=== PATIENT | female | born 1980 | race Caucasian/White ===

== ENCOUNTER 2022-12-28 13:07 | Observation (INO) | payer MEDICARE, MEDICAID ==
[~2022-12-28] VITALS: Ht 162.6 cm; Wt 72.4 kg
--- NOTE | 2022-12-28 13:23 | ED Chest Pain ---
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 PT STATES WAS LAYING DOWN WHEN CHEST PAIN BEGAN. PT REPORTS CARDIAC HX, 2 STENTS. PT A&OX4 Source: patient Exam Limitations: no limitations History of Present Illness Date Seen by Provider: Dec 28, 2022 Time Seen by Provider: 13:21 Initial Comments Patient is a 42-year-old female with a history of coronary artery disease who presents to the ED for chest pain. Chest pain started 2 hours ago while sitting at home. Described as sharp substernal without radiation. Shortness of breath over the past 3 days. Shortness of breath is not worse with exertion or laying down. Denies any leg swelling. 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 She has a history of cardiomyopathy. She is not on any diuretics. She denies fever, chills, nausea, vomiting, diarrhea, headache, dizziness, recent travels or surgeries, leg swelling. Patient with a history of high cholesterol and diabetes. Patient is currently on insulin for her type 2 diabetes. She does take Brilinta. Allergies and Home Medications Allergies Coded Allergies: liraglutide (Verified Allergy, Unknown, 12/28/22) prednisone (Verified Allergy, Unknown, 12/28/22) Patient Home Medication List Home Medication List Reviewed: Yes Review of Systems Review of Systems Constitutional: No chills, No diaphoresis EENTM: No Double Vision, No Eye Pain Respiratory: Denies Cough, Denies Orthopnea; Shortness of Air Cardiovascular: Chest Pain Gastrointestinal: Denies Abdominal Pain, Denies Diarrhea, Denies Nausea, Denies Vomiting Genitourinary: Denies Burning, Denies Discharge, Denies Drainage, Denies Frequency Musculoskeletal: No back pain, No joint pain Skin: No change in color All Other Systems Reviewed Negative Unless Noted: Yes Past Lrirsjl-Ikcxis-Auzuhb Hx Patient Social History Tobacco Use?: No Substance use?: No Alcohol Use?: No Pt feels they are or have been: No Past Medical History Surgery/Hospitalization HX: 2 HEART SENTS, CAD, DM2, HTN Physical Exam Vital Signs Vital Signs - First Documented 12/28/22 13:11 Pulse 108 Resp 20 B/P (MAP) 128/108 (115) Pulse Ox 100 O2 Delivery Room Air Capillary Refill : Less Than 3 Seconds Height, Weight, BMI Height: '" Weight: lbs. oz. kg; BMI Method: General Appearance: No Apparent Distress, WD/WN HEENT: PERRL/EOMI, TMs Normal, Normal ENT Inspection, Pharynx Normal Neck: Full Range of Motion, Normal Inspection, Non Tender, Supple Respiratory: Chest Non Tender, Lungs Clear, Normal Breath Sounds, No Accessory Muscle Use, No Respiratory Distress Cardiovascular: No Edema, No Gallop, No JVD, No Murmur, Tachycardia Gastrointestinal: Normal Bowel Sounds, No Organomegaly, No Pulsatile Mass, Non Tender Extremity: Normal Capillary Refill, Normal Inspection, Normal Range of Motion, Non Tender Neurologic/Psychiatric: Alert, Oriented x3, No Motor/Sensory Deficits, Normal 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, 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 Skin: Normal Color, Warm/Dry Progress/Results/Core Measures Results/Orders Lab Results Laboratory Tests Test 12/28/22 13:17 Range/Units White Blood Count 9.4 4.3-11.0 10^3/uL Red Blood Count 5.65 H 3.80-5.11 10^6/uL Hemoglobin 14.7 11.5-16.0 g/dL Hematocrit 44 35-52 % Mean Corpuscular Volume 78 L 80-99 fL Mean Corpuscular Hemoglobin 26 25-34 pg Mean Corpuscular Hemoglobin Concent 34 32-36 g/dL Red Cell Distribution Width 15.2 H 10.0-14.5 % Platelet Count 298 130-400 10^3/uL Mean Platelet Volume 10.0 9.0-12.2 fL Immature Granulocyte % (Auto) 2 % Neutrophils (%) (Auto) 54 42-75 % Lymphocytes (%) (Auto) 35 12-44 % Monocytes (%) (Auto) 7 0-12 % Eosinophils (%) (Auto) 1 0-10 % Basophils (%) (Auto) 1 0-10 % Neutrophils # (Auto) 5.1 1.8-7.8 10^3/uL Lymphocytes # (Auto) 3.3 1.0-4.0 10^3/uL Monocytes # (Auto) 0.7 0.0-1.0 10^3/uL Eosinophils # (Auto) 0.1 0.0-0.3 10^3/uL Basophils # (Auto) 0.1 0.0-0.1 10^3/uL Immature Granulocyte # (Auto) 0.2 H 0.0-0.1 10^3/uL Prothrombin Time 12.2 12.2-14.7 SEC INR Comment 0.9 0.8-1.4 Activated Partial Thromboplast Time 30 24-35 SEC D-Dimer < 0.27 0.00-0.49 UG/ML Sodium Level 131 L 135-145 MMOL/L Potassium Level 3.8 3.6-5.0 MMOL/L Chloride Level 97 L 98-107 MMOL/L Carbon Dioxide Level 20 L 21-32 MMOL/L Anion Gap 14 5-14 MMOL/L Blood Urea Nitrogen 17 7-18 MG/DL Creatinine 1.16 0.60-1.30 MG/DL Estimat Glomerular Filtration Rate 60 BUN/Creatinine Ratio 15 Glucose Level 425 *H 70-105 MG/DL Calcium Level 9.8 8.5-10.1 MG/DL Corrected Calcium 9.6 8.5-10.1 MG/DL Magnesium Level 1.9 1.6-2.4 MG/DL Total Bilirubin 0.5 0.1-1.0 MG/DL Aspartate Amino Transf (AST/SGOT) 11 5-34 U/L Alanine Aminotransferase (ALT/SGPT) 14 0-55 U/L Alkaline Phosphatase 95 40-136 U/L Myoglobin 38.4 10.0-92.0 NG/ML Troponin I < 0.028 <0.028 NG/ML B-Type Natriuretic Peptide < 10.0 <100.0 PG/ML Total Protein 8.1 6.4-8.2 GM/DL Albumin 4.2 3.2-4.5 GM/DL Lipase 51 8-78 U/L Beta-Hydroxybutyrate (Chem panel) 0.28 H 0.00-0.27 MMOL/L My Orders Orders - CELI ARGUETA PA Ekg Tracing (12/28/22 13:10) Ekg Tracing (12/28/22 13:11) Cbc With Automated Diff (12/28/22 13:20) Magnesium (12/28/22 13:20) Chest 1 View, Ap/Pa Only (12/28/22 13:20) Ekg Tracing (12/28/22 13:20) Comprehensive Metabolic Panel (12/28/22 13:20) Myoglobin Serum (12/28/22 13:20) Protime With Inr (12/28/22 13:20) Partial Thromboplastin Time (12/28/22 13:20) O2 (12/28/22 13:20) Monitor-Rhythm Ecg Trace Only (12/28/22 13:20) Ed Iv/Invasive Line Start (12/28/22 13:20) Lipase (12/28/22 13:20) Bnp [place] (12/28/22 13:20) Fibrin Degradation Products (12/28/22 13:20) Troponin I [place] (12/28/22 13:20) Ondansetron Injection (Zofran Injectio (12/28/22 13:30) Ondansetron Injection (Zofran Injectio (12/28/22 13:30) Morphine Injection (Morphine Injection (12/28/22 13:27) Beta Hydroxybutyrate (12/28/22 13:41) Ns Iv 1000 Ml (Sodium Chloride 0.9%) (12/28/22 13:41) Insulin (Regular) Human (Novolin R (Per (12/28/22 13:45) Ua Culture If Indicated (12/28/22 13:42) Ticagrelor Tablet (Brilinta Tablet) (12/28/22 14:30) Ed Admission (Communication) (12/28/22 14:32) Troponin I [place] (12/28/22 16:17) Enoxaparin Injection (Lovenox Injection) (12/28/22 14:45) Medications Given in ED Current Medications Medications Dose Ordered Sig/Umer Route Start Time Stop Time Status Last Admin Dose Admin Insulin Human Regular 10 unit ONCE ONCE IV 12/28/22 13:45 12/28/22 13:46 DC 12/28/22 13:50 10 UNIT Ondansetron HCl 4 mg ONCE ONCE IVP 12/28/22 13:30 12/28/22 13:31 DC 12/28/22 13:32 4 MG Vital Signs/I&O 12/28/22 13:11 Pulse 108 Resp 20 B/P (MAP) 128/108 (115) Pulse Ox 100 O2 Delivery Room Air Blood Pressure Mean: 115 Comment Sinus tachycardia, left anterior fascicular block, Q waves in V1 V2, moderate T wave abnormality in the lateral leads. 107 bpm, QRS duration 117 MS, QTc 446 MS Departure Communication (PCP) History of coronary artery disease, hypertension, high cholesterol, previous smoker presents ED with substernal chest pain. Chest pain started 2 hours ago at home. Shortness of breath over the past 3 days. No recent travel surgeries. Denies any leg swelling. Does take Brilinta, metoprolol and statin. She had a cardiac cath performed with 2 stents placed 1 year ago at [facility]. Patient reports pain 6 out of 10. She was given a full aspirin 324 mg. Cardiac work-up was initiated. Differential diagnosis ACS, pericarditis, pneu monia,. She is type II diabetic currently on insulin. She has not checked her insulin for the past 2 days. Denies taking thing for pain. She blood pressure was normotensive. She did receive 2 mg of IV morphine with improvement of chest pain. EKG did note sinus tachycardia with moderate T wave abnormality in the lateral leads. Old Q waves in V1 V2. Cardiac work-up was unremarkable. Normal D-dimer. Blood sugar 425. Sodium 131, chloride 97. Normal anion gap. Was started on a liter of fluid given 10 units of insulin with improvement of her blood sugar. Does not appear in DKA. Due to her extensive cardiac history consulted paste up worker Dr. Ramirez who is on-call. Discussed delta troponin versus admission. Due to her high heart score and cardiac risk factors patient will be admitted for observation. Recommend n.p.o. after midnight. Recommend dose of 180 mg of Brilinta and dose of Lovenox. This was given in the ED. Delta troponin with a troponin in the morning. Patient was discussed with hospitalist Dr. Avery who agreed to accept the patient. Patient agrees for admission. Concern for cardiac etiology Impression Primary Impression: Chest pain Additional Impression: Hyperglycemia Disposition: ADMITTED INPATIENT Condition: Stable Admissions Decision to Admit Reason: Admit from ER (General) Decision to Admit/Date: Dec 28, 2022 Time/Decision to Admit Time: 14:29 Departure-Patient Inst. Referrals: PB NAVARRO MD (PCP/Family) Primary Care Physician CELI ARGUETA Dec 28, 2022 13:23
[2022-12-28 13:25] LABS: BASOPHILS # (AUTO) 0.1 10^3/uL (0.0-0.1); BASOPHILS % (AUTO) 1 % (0-10); EOSINOPHILS # (AUTO) 0.1 10^3/uL (0.0-0.3); EOSINOPHILS % (AUTO) 1 % (0-10); HEMATOCRIT 44 % (35-52); HEMOGLOBIN 14.7 g/dL (11.5-16.0); LYMPHOCYTES # (AUTO) 3.3 10^3/uL (1.0-4.0); LYMPHOCYTES % (AUTO) 35 % (12-44); MEAN CORPUSCULAR HEMOGLOBIN 26 pg (25-34); MEAN CORPUSCULAR HGB CONC 34 g/dL (32-36); MEAN CORPUSCULAR VOLUME 78 fL (80-99); MONOCYTES # (AUTO) 0.7 10^3/uL (0.0-1.0); MONOCYTES % (AUTO) 7 % (0-12); NEUTROPHILS # (AUTO) 5.1 10^3/uL (1.8-7.8); NEUTROPHILS % (AUTO) 54 % (42-75); PLATELET COUNT 298 10^3/uL (130-400); WHITE BLOOD COUNT 9.4 10^3/uL (4.3-11.0)
[2022-12-28] MEDS ORDERED: morphine INJ 10 MG/ML 1ML (SYR OR VIAL) IVP STA (13:27)
[2022-12-28] MEDS ORDERED: ONDANSETRON 4 MG/2 ML (SDV) Z0FRAN IVP ONE ×2 (13:30)
[2022-12-28 13:32] LABS: INR 0.9 (0.8-1.4); PROTHROMBIN TIME PATIENT 12.2 SEC (12.2-14.7)
[2022-12-28 13:33] LABS: ALBUMIN 4.2 GM/DL (3.2-4.5); CHLORIDE 97 MMOL/L (98-107); PARTIAL THROMBOPLASTIN TIME 30 SEC (24-35); POTASSIUM 3.8 MMOL/L (3.6-5.0); SODIUM 131 MMOL/L (135-145)
[2022-12-28 13:34] LABS: CALCIUM 9.8 MG/DL (8.5-10.1)
[2022-12-28 13:35] LABS: TOTAL PROTEIN 8.1 GM/DL (6.4-8.2)
[2022-12-28 13:36] LABS: CARBON DIOXIDE 20 MMOL/L (21-32)
[2022-12-28 13:37] LABS: BILIRUBIN,TOTAL 0.5 MG/DL (0.1-1.0)
[2022-12-28 13:39] LABS: ALKALINE PHOSPHATASE 95 U/L (40-136); CREATININE SERUM 1.16 MG/DL (0.60-1.30); GFR ESTIMATED 60
[2022-12-28 13:40] LABS: BUN/CREATININE RATIO 15
[2022-12-28 13:41] LABS: GLUCOSE 425 MG/DL (70-105)
[2022-12-28] MEDS ORDERED: NS IV 1000 ML 1,000 ML IV STA (13:41)
--- NOTE | 2022-12-28 13:41 | Diagnostic Imaging Report ---
INDICATION: Shortness of air x3 days, chest pain for couple of hours. TECHNIQUE: Single view chest 1:39 PM CORRELATION STUDY: None FINDINGS: The heart size, mediastinal configuration and pulmonary vascularity are within normal limits. The lungs are clear with no consolidating infiltrate. There is no significant effusion or pneumothorax. IMPRESSION: 1. Negative appearing single view chest. Dictated by: Dictated on workstation # [id number]
[2022-12-28 13:42] LABS: ALANINE AMINOTRANSFERASE 14 U/L (0-55); MAGNESIUM 1.9 MG/DL (1.6-2.4)
[2022-12-28 13:43] LABS: LIPASE 51 U/L (8-78)
[2022-12-28] MEDS ORDERED: inSUlin (REGULAR) HUMAN 1 UNIT/0.01 ML (CHARGE PER UNIT) IV ONE (13:45)
[2022-12-28 13:52] LABS: FIBRIN DEGRADATION PRODUCTS < 0.27 UG/ML (0.00-0.49)
[2022-12-28] MEDS ORDERED: TICAGRELOR 90 MG TABLET (BRILINTA) PO ONE (14:30)
[2022-12-28 14:41] LABS: BILIRUBIN,URINE NEGATIVE (NEGATIVE); CLARITY,URINE CLEAR; COLOR,URINE YELLOW; GLUCOSE, URINE (UA) 3+ (NEGATIVE); KETONES,URINE NEGATIVE (NEGATIVE); LEUKOCYTE ESTERASE ,URINE NEGATIVE (NEGATIVE); NITRITE,URINE NEGATIVE (NEGATIVE); PH,URINE 5.5 (5-9); PROTEIN,URINE NEGATIVE (NEGATIVE)
[2022-12-28] MEDS ORDERED: ENOXAPARIN 80 MG/0.8 ML (LOVENOX) SYR SC ONE (14:45)
[2022-12-28 14:54] LABS: AMORPHOUS SEDIMENT,UR RARE AMOR URATES /LPF; BACTERIA,URINE FEW /HPF; SQUAMOUS EPITHELIAL CELL,UR 0-2 /HPF; WBC,URINE RARE /HPF; YEAST,URINE FEW /HPF
[2022-12-28 15:30] VITALS: BP 123/87
[2022-12-28] MEDS ORDERED: IVAB5TAB PO (16:00)
[2022-12-28] MEDS ORDERED: MIRT-68 PO (16:00)
[2022-12-28] MEDS ORDERED: INSU200I4 SQ (16:00)
[2022-12-28] MEDS ORDERED: diphenhydrAMINE 25 MG TAB (BENADRYL) PO PRN (16:00)
[2022-12-28] MEDS ORDERED: BUSP15TA60 PO (16:00)
[2022-12-28] MEDS ORDERED: ONDANSETRON 4 MG/2 ML (SDV) Z0FRAN IV PRN (16:00)
[2022-12-28] MEDS ORDERED: EZET10TA49 PO (16:00)
[2022-12-28] MEDS ORDERED: BISACODYL 10 MG SUPP (DULCOLAX) PR PRN (16:00)
[2022-12-28] MEDS ORDERED: INSU100I14 SQ (16:00)
[2022-12-28] MEDS ORDERED: ROSU40TA23 PO (16:00)
[2022-12-28] MEDS ORDERED: DAPA10TA PO (16:00)
[2022-12-28] MEDS ORDERED: polyethylene glycoL POWDER 17 GM (MIRALAX) PACK PO PRN (16:00)
[2022-12-28] MEDS ORDERED: TICA90TA PO (16:00)
[2022-12-28] MEDS ORDERED: MILK OF MAGNESIA 400 MG/5 ML 30 ML UDC PO PRN (16:00)
[2022-12-28] MEDS ORDERED: CALCIUM CARBONATE 500 MG (TUMS) TAB.CHEW PO PRN (16:00)
[2022-12-28] MEDS ORDERED: OMEP40CA6 PO (16:00)
[2022-12-28] MEDS ORDERED: METF-399 PO (16:00)
[2022-12-28] MEDS ORDERED: ONDANSETRON 4 MG (ZOFRAN) ORAL DISSOLVE TAB PO PRN (16:00)
[2022-12-28] MEDS ORDERED: ACETAMINOPHEN 325 MG TABLET PO PRN (16:00)
[2022-12-28] MEDS ORDERED: ENOXAPARIN 100 MG/1 ML (LOVENOX) SYR SC SCH (16:00)
[2022-12-28] MEDS ORDERED: MELATONIN 3 MG TABLET PO PRN (16:00)
[2022-12-28] MEDS ORDERED: BREX3TAB PO (16:00)
[2022-12-28] MEDS ORDERED: ANTACID SUSP 30 ML UDC (MYLANTA) PO PRN (16:00)
[2022-12-28] MEDS ORDERED: diphenhydrAMINE 50 MG/ML INJ (BENADRYL) IVP PRN (16:00)
[2022-12-28] MEDS ORDERED: LACTULOSE SYRUP 10GM/15ML (ENULOSE) 30ML UDC PO PRN (16:00)
[2022-12-28] MEDS ORDERED: morphine INJ 10 MG/ML 1ML (SYR OR VIAL) IVP PRN (16:00)
[2022-12-28] MEDS ORDERED: MTP25TSR PO (16:00)
[2022-12-28] MEDS ORDERED: DULO60CA59 PO (16:00)
[2022-12-28] MEDS ORDERED: morphine INJ 4 MG/ML 1 ML (VIAL/SYRINGE) IV PRN (16:15)
[2022-12-28] MEDS: NS IV 1000 ML 1,000 ML IV SCH (16:24)
[2022-12-28] MEDS: inSUlin ASPART (NovoLOG) 1 UNIT/0.01 ML (CHARGE PER UNIT) SC SCH ×2 (16:26→20:55)
--- NOTE | 2022-12-28 16:26 | Consultation-Cardiology ---
HPI-Cardiology Cardiology Consultation: Date of Consultation 12/28/22 Date of Admission Attending Physician Lukasz Bradford MD Admitting Physician Admitting Physician: Lo Avrey MD Attending Physician: Lo Avery MD Consulting Physician Martina SHAIKH MD HPI: Time Seen by a Provider: 16:22 Chief Complaint: Chest pain This is a 42-year-old lady who has history of diabetes, hypertension. She is a non-smoker. She has history of coronary artery disease with PCI done 1 year ago. She complains of chest pain which started at 11 AM. Mild to moderate intensity. Similar to the chest pain she had last year before the stents were placed. She also has history of cardiomyopathy. She is compliant with Brilinta. Review of Systems-Cardiology Review of Systems Constitutional: no symptoms reported Eyes: no symptoms reported Ears/Nose/Throat: no symptoms reported Respiratory: no symptoms reported Cardiovascular: chest pain Gastrointestinal: no symptoms reported Genitourinary: no symptoms reported Musculoskeletal: no symptoms reported Skin: no symptoms reported Psychiatric/Neurological: no symptoms reported Hematologic: no symptoms reported All Other Systems Reviewed Negative Unless Noted: Yes CGY-[id number]-Wysdqr Hx Patient Social History Smoking Status: Former Smoker Alcohol Use?: No Pt feels they are or have been: No Past Medical History PMH As described under Assessment. Allergies and Home Medications Allergies Coded Allergies: liraglutide (Verified Allergy, Unknown, 12/28/22) prednisone (Verified Allergy, Unknown, 12/28/22) Patient Home Medication List Home Medication List Reviewed: Yes Brexpiprazole (Rexulti) 3 Mg Tablet, 3 MG PO DAILY, (Reported) Entered as Reported by: HERMILA GARCÍA on 12/28/221599 Last Action: Reviewed Buspirone HCl (Buspirone HCl) 15 Mg Tablet, 15 MG PO BID, (Reported) Entered as Reported by: HERMILA GARCÍA on 12/28/221599 Last Action: Reviewed Dapagliflozin Propanediol (Farxiga) 10 Mg Tablet, 10 MG PO DAILY, (Reported) Entered as Reported by: HERMILA GARCÍA on 12/28/221599 Last Action: Reviewed Duloxetine HCl (Duloxetine HCl) 60 Mg Capsule.dr, 60 MG PO DAILY, (Reported) Entered as Reported by: HERMILA GARCÍA on 12/28/221599 Last Action: Reviewed Ezetimibe (Ezetimibe) 10 Mg Tablet, 10 MG PO DAILY, (Reported) Entered as Reported by: HERMILA GARCÍA on 12/28/221599 Last Action: Reviewed Insulin Aspart (Novolog Flexpen) 100 Unit/Ml (3 Ml) Solution, 35 UNITS SQ AC, (Reported) Entered as Reported by: HERMILA GARCÍA on 12/28/221599 Last Action: Reviewed Insulin Degludec (Tresiba Flextouch U-200) 200 Unit/Ml (3 Ml) Insuln.pen, 100 UNITS SQ HS, (Reported) Entered as Reported by: HERMILA GARCÍA on 12/28/221599 Last Action: Reviewed Ivabradine HCl (Corlanor) 5 Mg Tablet, 5 MG PO BID, (Reported) Entered as Reported by: HERMILA GARCÍA on 12/28/221599 Last Action: Reviewed Metformin HCl (Metformin HCl) 1,000 Mg Tablet, 1,000 MG PO BID, (Reported) Entered as Reported by: HERMILA GARCÍA on 12/28/221599 Last Action: Reviewed Metoprolol Succinate (Metoprolol Succinate) 25 Mg Tab.er.24h, 25 MG PO DAILY, (Reported) Entered as Reported by: HERMILA GARCÍA on 12/28/221599 Last Action: Reviewed Mirtazapine (Mirtazapine) 15 Mg Tablet, 15 MG PO HS, (Reported) Entered as Reported by: HERMILA GARCÍA on 12/28/221599 Last Action: Reviewed Omeprazole (Omeprazole) 40 Mg Capsule.dr, 40 MG PO DAILY, (Reported) Entered as Reported by: HERMILA GARCÍA on 12/28/221599 Last Action: Reviewed Rosuvastatin Calcium (Rosuvastatin Calcium) 40 Mg Tablet, 40 MG PO DAILY, (Reported) Entered as Reported by: HERMILA GARCÍA on 12/28/221599 Last Action: Reviewed Ticagrelor (Brilinta) 90 Mg Tablet, 90 MG PO BID, (Reported) Entered as Reported by: HERMILA GARCÍA on 12/28/221599 Last Action: Reviewed Exam Vital Signs Vital Signs Date Time Temp Pulse Resp B/P (MAP) Pulse Ox O2 Delivery O2 Flow Rate FiO2 12/28/22 15:15 96 17 110/77 97 Room Air Physical Exam Constitutional examination: No respiratory distress. Chest: Clear to auscultation bilaterally. CVS: Regular rhythm. No murmur. Psychiatry: Flat affect. No pedal edema. Labs Laboratory Tests Test 12/28/22 13:17 12/28/22 14:32 12/28/22 14:40 Range/Units White Blood Count 9.4 4.3-11.0 10^3/uL Red Blood Count 5.65 H 3.80-5.11 10^6/uL Hemoglobin 14.7 11.5-16.0 g/dL Hematocrit 44 35-52 % Mean Corpuscular Volume 78 L 80-99 fL Mean Corpuscular Hemoglobin 26 25-34 pg Mean Corpuscular Hemoglobin Concent 34 32-36 g/dL Red Cell Distribution Width 15.2 H 10.0-14.5 % Platelet Count 298 130-400 10^3/uL Mean Platelet Volume 10.0 9.0-12.2 fL Immature Granulocyte % (Auto) 2 % Neutrophils (%) (Auto) 54 42-75 % Lymphocytes (%) (Auto) 35 12-44 % Monocytes (%) (Auto) 7 0-12 % Eosinophils (%) (Auto) 1 0-10 % Basophils (%) (Auto) 1 0-10 % Neutrophils # (Auto) 5.1 1.8-7.8 10^3/uL Lymphocytes # (Auto) 3.3 1.0-4.0 10^3/uL Monocytes # (Auto) 0.7 0.0-1.0 10^3/uL Eosinophils # (Auto) 0.1 0.0-0.3 10^3/uL Basophils # (Auto) 0.1 0.0-0.1 10^3/uL Immature Granulocyte # (Auto) 0.2 H 0.0-0.1 10^3/uL Prothrombin Time 12.2 12.2-14.7 SEC INR Comment 0.9 0.8-1.4 Activated Partial Thromboplast Time 30 24-35 SEC D-Dimer < 0.27 0.00-0.49 UG/ML Sodium Level 131 L 135-145 MMOL/L Potassium Level 3.8 3.6-5.0 MMOL/L Chloride Level 97 L 98-107 MMOL/L Carbon Dioxide Level 20 L 21-32 MMOL/L Anion Gap 14 5-14 MMOL/L Blood Urea Nitrogen 17 7-18 MG/DL Creatinine 1.16 0.60-1.30 MG/DL Estimat Glomerular Filtration Rate 60 BUN/Creatinine Ratio 15 Glucose Level 425 *H 70-105 MG/DL Calcium Level 9.8 8.5-10.1 MG/DL Corrected Calcium 9.6 8.5-10.1 MG/DL Magnesium Level 1.9 1.6-2.4 MG/DL Total Bilirubin 0.5 0.1-1.0 MG/DL Aspartate Amino Transf (AST/SGOT) 11 5-34 U/L Alanine Aminotransferase (ALT/SGPT) 14 0-55 U/L Alkaline Phosphatase 95 40-136 U/L Myoglobin 38.4 10.0-92.0 NG/ML Troponin I < 0.028 <0.028 NG/ML B-Type Natriuretic Peptide < 10.0 <100.0 PG/ML Total Protein 8.1 6.4-8.2 GM/DL Albumin 4.2 3.2-4.5 GM/DL Lipase 51 8-78 U/L Beta-Hydroxybutyrate (Chem panel) 0.28 H 0.00-0.27 MMOL/L Urine Color YELLOW Urine Clarity CLEAR Urine pH 5.5 5-9 Urine Specific [place] 1.015 L 1.016-1.022 Urine Protein NEGATIVE NEGATIVE Urine Glucose (UA) 3+ H NEGATIVE Urine Ketones NEGATIVE NEGATIVE Urine Nitrite NEGATIVE NEGATIVE Urine Bilirubin NEGATIVE NEGATIVE Urine Urobilinogen 0.2 < = 1.0 MG/DL Urine Leukocyte Esterase NEGATIVE NEGATIVE Urine RBC (Auto) NEGATIVE NEGATIVE Urine RBC NONE /HPF Urine WBC RARE /HPF Urine Squamous Epithelial Cells 0-2 /HPF Urine Crystals PRESENT H /LPF Urine Amorphous Sediment RARE JERRELL URATES H /LPF Urine Bacteria FEW H /HPF Urine Casts NONE /LPF Urine Mucus NEGATIVE /LPF Urine Yeast FEW H /HPF Urine Culture Indicated YES Glucometer 368 H 70-110 MG/DL ECG Impression ECG Initial ECG Rhythm: Normal Sinus Initial ECG Impression: Nonspecific Changes A/P-Cardiology Assessment/Admission Diagnosis Prolonged episode of chest pain, CAD/PCI, Insulin requiring diabetes, Hypertension, Hyperlipidemia. Plan Prolonged episode of chest pain. First troponin is negative. EKG does not show any Significant ST-T wave abnormalities. We will do another troponin 3 hours from the first troponin and another 1 in the morning. I discussed at length with the patient. She is at high risk and working diagnosis is unstable angina. Therefore I took an informed consent for coronary angiography and possible intervention tomorrow. 1% risk of complication including a small risk of was discussed with the patient and accepted.Brilinta bolus was given. We will continue regular dose Brilinta. Lovenox was given in the ER. We will give another dose of Lovenox tonight. Hold Lovenox in the morning.Continue other me dical therapy. Request an echocardiogram which can be done tomorrow. Martina SHAIKH MD Dec 28, 2022 16:26
[2022-12-28 16:45] VITALS: BP 120/75
[2022-12-28 20:00] VITALS: BP_SYST 107; BP_SYST 144; BP_DIAS 104; BP_DIAS 66
[2022-12-28] MEDS: TICAGRELOR 90 MG TABLET (BRILINTA) PO SCH (20:55)
[2022-12-28] MEDS ORDERED: ENOXAPARIN 80 MG/0.8 ML (LOVENOX) SYR SC SCH (21:00)
[2022-12-28] MEDS: DOCUSATE SODIUM 100 MG (COLACE) CAP PO SCH (21:10)
[2022-12-28] MEDS: SENNOSIDES 8.6 MG (SENOKOT) TAB PO SCH (21:10)
[2022-12-29] VITALS (19 sets, daily range): BP systolic 102–128; BP diastolic 74–93
[2022-12-29] MEDS: NS IV 1000 ML 1,000 ML IV SCH ×2 (02:00→12:00)
[2022-12-29] MEDS ORDERED: ENOXAPARIN 80 MG/0.8 ML (LOVENOX) SYR SC SCH (04:00)
[2022-12-29 04:23] LABS: BASOPHILS # (AUTO) 0.1 10^3/uL (0.0-0.1); BASOPHILS % (AUTO) 1 % (0-10); EOSINOPHILS # (AUTO) 0.1 10^3/uL (0.0-0.3); EOSINOPHILS % (AUTO) 2 % (0-10); HEMATOCRIT 37 % (35-52); HEMOGLOBIN 12.4 g/dL (11.5-16.0); LYMPHOCYTES # (AUTO) 2.6 10^3/uL (1.0-4.0); LYMPHOCYTES % (AUTO) 34 % (12-44); MEAN CORPUSCULAR HEMOGLOBIN 26 pg (25-34); MEAN CORPUSCULAR HGB CONC 34 g/dL (32-36); MEAN CORPUSCULAR VOLUME 77 fL (80-99); MEAN PLATELET VOLUME 9.9 fL (9.0-12.2); MONOCYTES # (AUTO) 0.5 10^3/uL (0.0-1.0); MONOCYTES % (AUTO) 7 % (0-12); NEUTROPHILS # (AUTO) 4.2 10^3/uL (1.8-7.8); NEUTROPHILS % (AUTO) 56 % (42-75); PLATELET COUNT 214 10^3/uL (130-400); WHITE BLOOD COUNT 7.6 10^3/uL (4.3-11.0)
[2022-12-29 04:30] LABS: CHLORIDE 104 MMOL/L (98-107); POTASSIUM 3.7 MMOL/L (3.6-5.0); SODIUM 134 MMOL/L (135-145)
[2022-12-29 04:31] LABS: CALCIUM 8.4 MG/DL (8.5-10.1)
[2022-12-29 04:32] LABS: GLUCOSE 237 MG/DL (70-105)
[2022-12-29 04:33] LABS: CARBON DIOXIDE 20 MMOL/L (21-32)
[2022-12-29 04:35] LABS: CREATININE SERUM 0.98 MG/DL (0.60-1.30); GFR ESTIMATED 73
[2022-12-29 04:36] LABS: BUN/CREATININE RATIO 14
[2022-12-29] MEDS: inSUlin ASPART (NovoLOG) 1 UNIT/0.01 ML (CHARGE PER UNIT) SC SCH ×3 (06:01→16:30)
[2022-12-29] MEDS: TICAGRELOR 90 MG TABLET (BRILINTA) PO SCH (08:41)
[2022-12-29] MEDS ORDERED: ASPIRIN 81 MG CHEW (CHILDREN'S ASA) PO SCH (09:00)
[2022-12-29] MEDS: SENNOSIDES 8.6 MG (SENOKOT) TAB PO SCH (09:37)
[2022-12-29] MEDS: DOCUSATE SODIUM 100 MG (COLACE) CAP PO SCH (09:37)
[2022-12-29] MEDS ORDERED: HEParin 1000 UNIT/ML (10ML VIAL) FOR BOLUS ONE (10:13)
[2022-12-29] MEDS ORDERED: fentaNYL INJ 100 MCG/2 ML AMP ONE (10:13)
[2022-12-29] MEDS ORDERED: VERAPAMIL 5 MG/2 ML (CALAN) VIAL IV ONE (10:13)
[2022-12-29] MEDS ORDERED: MIDAZOLAM 5 MG/5 ML (VERSED) VIAL ONE (10:13)
[2022-12-29] MEDS ORDERED: LIDOCAINE 1% INJ 20 ML VIAL ONE (10:14)
[2022-12-29] MEDS ORDERED: NITRO DRIP 25000 MCG/D5W 250 ML IV ONE (10:14)
[2022-12-29] MEDS ORDERED: HEParin (CATH LAB) 2,000 ML IV ONE (10:14)
[2022-12-29] MEDS ORDERED: NS IV 1000 ML 0 ML ONE (10:14)
--- NOTE | 2022-12-29 11:31 | Cardiac Procedure Note-CS/ASA ---
Pre-Procedure Note Pre-Op Procedure Note Date H&P Reviewed: Dec 29, 2022 Time H&P Reviewed: 11:00 History & Physical: H&P Reviewed, Patient Examed, No changes noted Pre-Operative Diagnosis: Unstable angina Moderate Sedation PreProcedure Time 11:00 ASA Score 3 Airway Lungs Heart ASA score ASA 1: a normal healthy patient ASA 2: a patient with a mild systemic disease (mid diabetes, controlled hypertension, obesity ASA 3: a patient with a severe systemic disease that limits activity (angina, COPD, prior Myocardial infarction) ASA 4: a patient with an incapacitating disease that is a constant threat to life (CHF, renal failure) ASA 5: a moribund patient not expected to survive 24 hrs. (ruptured aneurysm) ASA 6: a declared brain- patient whose organs are being harvested. For emergent operations, add the letter E after the classification Mallampati Classification Grade 1 Sedation Plan Analgesia, Amnesia, Plan communicated to team members, Discussed options with patient/fam, Discussed risks with patient/fam The patient is an appropriate candidate to undergo the planned procedure, sedation, and anesthesia. The patient immediately re-assessed prior to indication. Martina SHAIKH MD Dec 29, 2022 11:31
--- NOTE | 2022-12-29 11:36 | Coronary Angiography Report ---
Coronary Angiography Report DATE OF PROCEDURE: 12/29/22 INDICATION: Unstable angina PREOPERATIVE DIAGNOSIS: Unstable angina POSTOPERATIVE DIAGNOSIS: Chest pain, patent stents. HISTORY: This is a 42-year-old lady who has history of diabetes. CAD/2 stents 1 year ago in [place]. She presents with prolonged episode of chest pain which according to the patient was very similar to her previous chest pain.Therefore, the patient was scheduled for coronary angiography. PROCEDURES PERFORMED: 1.Coronary angiography. 2.Left heart catheterization. COMPLICATIONS: None. SPECIMENS: None. ESTIMATED BLOOD LOSS: 10 mL ANESTHESIA: Conscious sedation ANTICOAGULATION: IV heparin CONTRAST: 48 mL FLUOROSCOPY: 6 minutes. FLOUROSCOPY DOSE: 596 mGy. PROCEDURE DETAILS: The patient is a 42 female and was brought to the laborer laboratory after informed consent was taken. All the risks and complications were explained in detail; this included the risk of bleeding, vascular damage, stroke, AK and even . The patient was draped and prepped in the usual sterile fashion. Access was gained in the right radial artery with a 6 [place] sheath. Coronary angiography and left heart catheterization was performed with the [place] catheter And JR4 catheter. FINDINGS: 1.Left main: Patent 2.LAD: Patent stent in the mid LAD. No significant disease noted. A diagonal vessel has ostial pinching due to previous stent with MAGALI-3 flow and no chest pain. 3.Left circumflex artery: Patent. 4.RCA: Patent stent with no disease noted. 5.Left heart catheterization: Aortic pressure 105/75 mmHg. LV pressure 104/12 mmHg. LVEDP 15 mmHg. No gradient across the aortic valve. Normal wall motion with normal EF. CONCLUSIONS: Patent stents in the LAD and RCA. Diagonal vessel has ostial pinching due to previous stent with MAGALI-3 flow and no chest pain. Medical therapy. Continue dual antiplatelet therapy. Follow-up with cardiology as an outpatient. Cathleen Ramirez MD, FACP, FACC, [facility] Interventional Cardiology Martina RAMIREZ MD Dec 29, 2022 11:36
[2022-12-29] MEDS ORDERED: PATIENT MAY USE OWN MEDS, ALL PO SCH (11:45)
[2022-12-29] MEDS ORDERED: NS IV 1000 ML 1,000 ML IV SCH (11:45)
--- NOTE | 2022-12-29 14:47 | Cardiology Progress Note ---
Cardiology SOAP Progress Note Subjective: No further chest pain. Objective: I&O/Vital Signs 12/29/22 12/29/22 12/29/22 12/29/22 04:00 07:00 07:24 08:00 Temp 35.5 36.3 Pulse 92 88 94 Resp 16 16 B/P (MAP) 102/81 (88) 128/88 (101) Pulse Ox 99 99 96 O2 Delivery Room Air Room Air Room Air 12/29/22 13:00 Pulse 95 12/29/22 00:00 Intake Total 300 ml Balance 300 ml Constitutional: AAO x 3 Respiratory: lungs clear to auscultation Cardiovascular: regular rate-rhythm, S1 and S2 Gastrointestional: soft Neurologic/Psychiatric: alert, normal mood/affect, oriented x 3 Results/Procedures: Labs Laboratory Tests 12/28/22 16:23: Glucometer 327H 12/28/22 18:25: Troponin I < 0.028 12/28/22 20:53: Glucometer 293H 12/29/22 04:02: Troponin I < 0.028, White Blood Count 7.6, Red Blood Count 4.76, Hemoglobin 12.4, Hematocrit 37, Mean Corpuscular Volume 77L, Mean Corpuscular Hemoglobin 26, Mean Corpuscular Hemoglobin Concent 34, Red Cell Distribution Width 15.2H, Platelet Count 214, Mean Platelet Volume 9.9, Immature Granulocyte % (Auto) 2, Neutrophils (%) (Auto) 56, Lymphocytes (%) (Auto) 34, Monocytes (%) (Auto) 7, Eosinophils (%) (Auto) 2, Basophils (%) (Auto) 1, Neutrophils # (Auto) 4.2, Lymphocytes # (Auto) 2.6, Monocytes # (Auto) 0.5, Eosinophils # (Auto) 0.1, Basophils # (Auto) 0.1, Immature Granulocyte # (Auto) 0.1, Sodium Level 134L, Potassium Level 3.7, Chloride Level 104, Carbon Dioxide Level 20L, Anion Gap 10, Blood Urea Nitrogen 14, Creatinine 0.98, Estimat Glomerular Filtration Rate 73, BUN/Creatinine Ratio 14, Glucose Level 237H, Calcium Level 8.4L 12/29/22 10:42: Urine Test NEGATIVE 12/29/22 12:34: Glucometer 298H A/P: Assessment/Dx: Prolonged episode of chest pain, CAD/PCI, Insulin requiring diabetes, Hypertension, Hyperlipidemia. Plan: Patent stents. A small diagonal artery has ostial pinching from the previous stent with MAGALI-3 flow and no chest pain. We will treat with medical therapy. Echocardiogram shows normal LV function with no wall motion abnormalities. Continue current medical therapy With dual antiplatelet therapy and recommend follow-up with Dr. Roy or Dr. Woodson. Clinical Quality Measures AMI/AHF: ASA po Prior to arrival: Martina Sainz MD Dec 29, 2022 14:47
--- NOTE | 2022-12-29 16:36 | Short Stay Summary-Hospitalist ---
History of Present Illness HPI/Chief Complaint Marie Unger is a 42 year old female with PMH HTN, T2DM, HLD, CAD with history of stenting, who presented with chest pain. The pain was located in the center of her chest and did not radiate. She described it as similar to the pain she had when she got her stents. She denied shortness of breath, nausea, vomiting, neck pain, arm pain. Source: patient Exam Limitations: no limitations Date Seen 12/29/22 Time Seen by a Provider: 09:30 Attending Physician Lukasz Bradford MD PCP Admitting Physician: Lo Avery MD Attending Physician: Lo Avery MD Referring Physician Date of Admission Dec 28, 2022 at 15:02 Home Medications & Allergies Home Medications Reviewed patient Home Medication Reconciliation performed by pharmacy medication reconciliations certified pest control technician and/or nursing. Patients Allergies have been reviewed. Allergies Allergies Coded Allergies liraglutide (Verified Allergy, Unknown, 12/28/22) prednisone (Verified Allergy, Unknown, 12/28/22) Past [id number] Hx Patient Social History Tobacco Use?: No Smoking Status: Former Smoker Use of E-Cig and/or Vaping dev: No Substance use?: No Alcohol Use?: No Pt feels they are or have been: No Current Status status: No status: No Advance Directives: No Communicates: Verbally Primary Language: [place] Preferred Spoken Language: [place] Is interpretation needed?: No Sensory deficits: Vision impairment Implanted or Applied Medical D: Stents Past Medical History High Cholesterol, Hypertension Diabetes, Insulin dep Family Medical History No Pertinent Family Hx Review of Systems Constitutional: no symptoms reported Respiratory: no symptoms reported Cardiovascular: chest pain Gastrointestinal: no symptoms reported Physical Exam Physical Exam Vital Signs Vital Signs - First Documented 12/28/22 12/28/22 13:11 16:45 Temp 37.2 Pulse 108 Resp 20 B/P (MAP) 128/108 (115) Pulse Ox 100 O2 Delivery Room Air Capillary Refill : Less Than 3 Seconds Height, Weight, BMI Height: '" Weight: lbs. oz. kg; 27.27 BMI Method: General Appearance: No Apparent Distress, WD/WN HEENT: PERRL/EOMI, Pharynx Normal Neck: Normal Inspection, Non Tender, Supple Respiratory: Chest Non Tender, Lungs Clear, Normal Breath Sounds, No Accessory Muscle Use, No Respiratory Distress Cardiovascular: Regular Rate, Rhythm, No Edema, No Murmur Gastrointestinal: Normal Bowel Sounds, Non Tender, Soft Extremity: Normal Inspection, Non Tender, No Pedal Edema Neurologic/Psychiatric: Alert, Oriented x3, No Motor/Sensory Deficits, Normal Mood/Affect Skin: Normal Color, Warm/Dry Results Results/Procedures Labs Laboratory Tests 12/28/22 13:17 12/29/22 04:02 Patient resulted labs reviewed. Imaging: Reviewed Imaging Report Short Stay Diagnosis Discharge Diagnosis-Short Stay Admission Diagnosis Chest pain Final Discharge Diagnosis Chest pain Conclusion Plan Chest pain Coronary artery disease Hypertension Hyperlipidemia Diabetes mellitus Cardiology consulted Troponin remained negative Left heart cath with coronary disease, not amenable to intervention, medical management recommended Continue dual-antiplatelet therapy Echo with normal EF, grade I diastolic dysfunction Follow up in Cardiology clinic Follow up with PCP Diagnosis/Problems Diagnosis/Problems (1) Chest pain Status: Acute (2) CAD (coronary artery disease) Status: Acute (3) HTN (hypertension) Status: Chronic Qualifiers: Qualified Codes: I10 - Essential (primary) hypertension (4) T2DM (type 2 diabetes mellitus) Status: Chronic Qualifiers: Qualified Codes: E11.9 - Type 2 diabetes mellitus without complications; Z79.4 - publications writer (current) use of insulin (5) HLD (hyperlipidemia) Status: Chronic Clinical Quality Measures AMI/AHF: ASA po Prior to arrival: LO Suazo MD Dec 29, 2022 16:36
[2022-12-29] MEDS ORDERED: ASPI-1238 PO (16:50)
[2022-12-29] MEDS ORDERED: TICAGRELOR 90 MG TABLET (BRILINTA) PO SCH (21:00)
[2022-12-30] MEDS ORDERED: ASPIRIN E.C. 81 MG (ECOTRIN) TAB PO SCH (09:00)
== END 2022-12-29 17:45 | disposition home or self-care (01) ==
LOC: ER 13:10 → CSD 15:02
PROVIDERS: ADMIT Internal Medicine; ATTEND Internal Medicine
DX: R07.2 Precordial pain (principal); I25.10 Atherosclerotic heart disease of native coronary artery without angina pectoris; I10 Essential (primary) hypertension; E78.5 Hyperlipidemia, unspecified; E11.65 Type 2 diabetes mellitus with hyperglycemia; Z87.891 Personal history of nicotine dependence; Z79.4 Long term (current) use of insulin; Z95.5 Presence of coronary angioplasty implant and graft
CPT/HCPCS: 71045; 80048; 80053; 81000; 82010; 82947 ×2; 83690; 83735; 83874; 83880; 84484 ×2; 84703; 85025 ×2; 85379; 85610; 85730; 87088; 93005; 93041; 93458; 96372; 99284; C1769; C1894; C8929; 36415; 93306